=== PATIENT | male | born 1950 | race American Indian/Alaskan Native ===

== ENCOUNTER 2016-12-23 14:42 | Emergency (ER) | payer MEDICARE ==
[2016-12-23] MEDS ORDERED: Sodium Chloride 0.9% 500 ML IV ONE ×2 (15:13→15:26)
[2016-12-23 15:32] LABS: BASO # 0.1 K/uL (0.0-0.2); BASO % 0.9 % (0.0-2.0); EOS # 0.1 K/uL (0.0-0.7); EOS % 1.3 % (0.0-4.0); HEMATOCRIT 44.2 % (35.0-51.0); LYMPH # 1.6 K/uL (1.0-4.3); LYMPH % 15.5 % (20.0-40.0); MEAN CORPUSCULAR HEMOGLOBIN 27.7 pg (27.0-31.0); MEAN PLATELET VOLUME 8.8 fL (7.2-11.7); MONO # 0.8 K/uL (0.0-0.8); RED CELL DISTRIBUTION WIDTH 13.3 % (11.5-14.5); WHITE BLOOD COUNT 10.3 K/uL (4.8-10.8)
[2016-12-23 15:37] LABS: CHLORIDE 90 mmol/L (98-107); RBC URINE 13 /hpf (0-3); SODIUM 129 mmol/L (132-148); URINE BACTERIA RARE (<OCC); URINE BILIRUBIN NEGATIVE (NEGATIVE); URINE BLOOD 1+ (NEGATIVE); URINE COLOR Straw (YELLOW); URINE GLUCOSE (UA) 3+ mg/dL (Normal); URINE KETONE NEGATIVE (NEGATIVE); URINE LEUKOCYTE ESTERASE 1+ Leu/uL (Negative); URINE PROTEIN NEGATIVE (NEGATIVE); URINE UROBILINOGEN NORMAL mg/dL (0.2-1.0); WBC URINE 25 /hpf (0-5)
[2016-12-23 15:38] LABS: POTASSIUM 4.3 mmol/L (3.6-5.2)
[2016-12-23 15:39] LABS: GFR AFRICAN-AMERICAN > 60
[2016-12-23 15:40] LABS: ALKALINE PHOSPHATASE 146 U/L (38-126); ALT/SGPT 41 U/L (21-72); AST/SGOT 23 U/L (17-59); BILIRUBIN,TOTAL 0.6 mg/dL (0.2-1.3); BLOOD UREA NITROGEN 13 mg/dL (9-20); CARBON DIOXIDE 30 mmol/L (22-30); TOTAL PROTEIN 7.4 g/dL (6.3-8.3)
[2016-12-23 15:41] LABS: CALCIUM 8.9 mg/dl (8.6-10.4)
[2016-12-23 15:43] LABS: GLUCOSE,RANDOM 433 mg/dL (75-110)
[2016-12-23] MEDS ORDERED: (Novolin R) Insulin Human Regular 100 units/ml vial IV ONE (15:45)
[2016-12-23] MEDS ORDERED: (Novolin R) Insulin Human Regular 100 units/ml vial ONE (15:54)
--- NOTE | 2016-12-23 16:46 | US ---
HISTORY: ruq COMPARISON: None available. TECHNIQUE: Sonographic evaluation of the right upper quadrant of the abdomen. FINDINGS: LIVER: Measures 14.7 cm in length and appears within normal limits. No focal hepatic mass identified. The main portal vein appears patent with normal directional flow. No intrahepatic bile duct dilatation. GALLBLADDER: No gallstones. No gallbladder wall thickening or pericholecystic edema. Negative sonographic Curran's sign as assessed by the vocational rehab consultant. COMMON BILE DUCT: Measures 5 mm. PANCREAS: Not well-visualized. RIGHT KIDNEY: Measures 11.4 x 5.1 x 5.9 cm. No obstructing calculus or hydronephrosis identified. AORTA: Limited visualization appears grossly unremarkable. IVC: Limited visualization appears grossly unremarkable. OTHER FINDINGS: None . IMPRESSION: Unremarkable limited abdominal ultrasound as above.
--- NOTE | 2016-12-23 16:51 | C.PDOC ---
History Of Present Illness 66-year-old male presents to the emergency department with complaints of epigastric and right-upper quadrant abdominal pain x two weeks. Pain is intermittent in nature, and associated with nausea, non-bilious/non-bloody vomiting and hiccups. Patient admits to decreased PO intake. He denies dysphagia , chest pain, shortness of breath, palpitations, dysuria, hematuria, cough, fever. Time Seen by Provider: 12/23/16 14:55 Chief Complaint (Nursing): Abdominal Pain History Per: Patient History/Exam Limitations: no limitations Onset/Duration Of Symptoms: Days Severity: Mild Location Of Pain/Discomfort: RUQ, Epigastric Quality Of Discomfort: "Pain" Associated Symptoms: Nausea, Vomiting. denies: Fever, Chills Past Medical History Reviewed: Historical Data, Nursing Documentation, Vital Signs Vital Signs: Last Vital Signs Temp 98.5 F 12/23/16 17:58 Pulse 68 12/23/16 17:58 Resp 18 12/23/16 17:58 BP 124/82 12/23/16 17:58 Pulse Ox 100 12/23/16 19:09 - Medical History PMH: Arthritis, Fractures, Osteoporosis Family History: States: No Known Family Hx - Social History Hx Tobacco Use: Yes Hx Alcohol Use: Yes Hx Substance Use: No (DENIED) - Immunization History Hx Tetanus Toxoid Vaccination: No Hx Influenza Vaccination: No Hx Pneumococcal Vaccination: No Review Of Systems Except As Marked, All Systems Reviewed And Found Negative. Constitutional: Negative for: Fever, Chills Cardiovascular: Negative for: Chest Pain, Palpitations Respiratory: Negative for: Cough, Shortness of Breath Gastrointestinal: Positive for: Nausea, Vomiting, Abdominal Pain. Negative for : Diarrhea Genitourinary: Negative for: Dysuria, Frequency Musculoskeletal: Negative for: Back Pain Skin: Negative for: Rash Neurological: Negative for: Headache Physical Exam - Physical Exam Appears: Well, Non-toxic, No Acute Distress Skin: Warm, Dry, No Rash Head: Normacephalic Eye(s): bilateral: Normal Inspection Oral Mucosa: Moist Neck: Normal, Normal ROM Cardiovascular: Rhythm Regular Respiratory: Normal Breath Sounds, No Accessory Muscle Use, No Rales, No Rhonchi , No Wheezing Gastrointestinal/Abdominal: Bowel Sounds, Soft, Tenderness (mild RUQ and epigastric TTP), No Guarding, No Rebound, Other ((-) Curran's) Back: Normal Inspection, No CVA Tenderness Extremity: Normal ROM Neurological/Psych: Oriented x3 ED Course And Treatment - Laboratory Results Result Diagrams: 12/23/16 15:26 12/23/16 15:26 ECG: Interpreted By Me, Viewed By Me (NSR 73 bpm, normal axis, no acute ST/T wave changes) ECG Interpretation: No Acute Changes O2 Sat by Pulse Oximetry: 100 (RA) Pulse Ox Interpretation: Normal - CT Scan/US US ABDOMINAL Other Rad Studies (CT/US): Read By Radiologist, Radiology Report Reviewed CT/US Interpretation: ccession No. : [id number]. Patient Name / ID : VERNON Razo / [id number]. Exam Date : 12/23/2016 16:20:07 ( Approved ) . Study Comment : Sex / Age : M / 66Y. Creator : Karen Campbell MD. Dictator : Karen Campbell MD. Lap Cutter Truer Operator : Facilities Planner : Karen Campbell MD. Approver2 : Report Date : 12/23/2016 16:45:00. My Comment : . HISTORY: ruq. COMPARISON: None available. TECHNIQUE: Sonographic evaluation of the right upper quadrant of the abdomen. FINDINGS: LIVER: Measures 14.7 cm in length and appears within normal limits. No focal hepatic mass identified. The main portal vein appears patent with normal directional flow. No intrahepatic bile duct dilatation. GALLBLADDER: No gallstones. No gallbladder wall thickening or pericholecystic edema. Negative sonographic Curran's sign as assessed by the bridge tender. COMMON BILE DUCT: Measures 5 mm. PANCREAS: Not well-visualized. RIGHT KIDNEY: Measures 11.4 x 5.1 x 5.9 cm. No obstructing calculus or hydronephrosis identified. AORTA: Limited visualization appears grossly unremarkable. IVC: Limited visualization appears grossly unremarkable. OTHER FINDINGS: None . IMPRESSION: Unremarkable limited abdominal ultrasound as above. Progress Note: Blood work, UA, EKG, RUQ US ordered and reviewed. Patient given IV NS bolus. Glucose elevated, IV insulin ordered. Reevaluation Time: 17:50 Reassessment Condition: Improved (On reassessment, patient is resting comfortably and states he feels better. Explained to patient that he ia diabetic - patient does not want to be admitted, would like to be discharged home with medication. He is currently in no pain/distress, and on exam his abdomen is soft and nontender. Blood work does not show any evidence of acidosis/ketones. Patient given Rxs for metformin and zofran, and was instructed to follow up with PMD/clinic in 1-2 days. He understands he should return to ED immediately if symptoms worsen.) Disposition Counseled Patient/Family Regarding: Studies Performed, Diagnosis, Need For Followup, Rx Given - Disposition Referrals: [facility] [Outside] Disposition: HOME/ ROUTINE Disposition Time: 17:50 Condition: STABLE Additional Instructions: FOLLOW UP WITH YOUR DOCTOR IN 1-2 DAYS DRINK PLENTY OF FLUIDS RETURN TO ER IF SYMPTOMS WORSEN Prescriptions: metFORMIN [glucOPHAGE] 500 mg PO DAILY #30 tab Ondansetron [Zofran Odt] 4 mg PO Q8 PRN #10 odt PRN Reason: Nausea/Vomiting Instructions: Diabetes Mellitus Type 2 in Adults (ED) Print Language: ALBANIAN - POA Present On Arrival: None - Clinical Impression Clinical Impression: Vomiting, Nausea, New onset type 2 diabetes mellitus - Scribe Statement The provider has reviewed the documentation as recorded by the Bryce Hughes All medical record entries made by the Bryce were at my direction and personally dictated by me. I have reviewed the chart and agree that the record accurately reflects my personal performance of the history, physical exam, medical decision making, and the department course for this patient. I have also personally directed, reviewed, and agree with the discharge instructions and disposition.
[2016-12-23 17:59] VITALS: BP 124/82; PULSE 68; RESP 18; TEMP 98.5
[2016-12-23 19:09] VITALS: O2SAT 100
--- NOTE | 2016-12-28 10:10 | CARD ---
APPROVED REPORT EKG Measurement Heart [id number] <Conclusion> Normal sinus rhythm Cannot rule out Anteroseptal infarct, age undetermined Abnormal ECG
== END 2016-12-23 18:00 | disposition home or self-care (01) ==
LOC: C.ER 14:42
DX: E11.9 Type 2 diabetes mellitus without complications (principal); R11.2 Nausea with vomiting, unspecified
CPT/HCPCS: 76705; 80053; 81001; 82948; 83690; 85025; 99285; J7040

== ENCOUNTER 2018-05-09 19:27 | Emergency (ER) | payer MEDICARE ==
[2018-05-09 19:50] VITALS: BP 126/89; PULSE 97; RESP 19; TEMP 98.7; O2SAT 98
== END 2018-05-09 20:45 | disposition left against medical advice (07) ==
LOC: C.ER 19:27
DX: Z02.89 Encounter for other administrative examinations (principal); R73.9 Hyperglycemia, unspecified
CPT/HCPCS: 82948; LWBS0